=== PATIENT | male | born 1975 | race African-American/Black ===

== ENCOUNTER 2016-11-05 17:53 | Emergency (ER) | payer SELFPAY ==
[~2016-11-05] VITALS: Ht 190.5 cm; Wt 192.8 kg
[2016-11-05 18:28] VITALS: BP 185/93
[2016-11-05] MEDS ORDERED: Tetracaine 0.5% Opth Soln LEFT EYE ONE (18:45)
[2016-11-05] MEDS ORDERED: Fluorescein Strips LEFT EYE ONE (18:45)
[2016-11-05] MEDS ORDERED: OCUFLOX5 ML LEFT EYE (19:40)
[2016-11-05 19:55] VITALS: BP 175/88
--- NOTE | 2016-11-06 22:06 | Emergency Room Report ---
History of Present Illness General Chief Complaint: Headache Source: Patient Present Illness HPI 41-year-old M presents ED complaining of pain to the left eye. States symptoms started approximately 2 days ago. Patient notes a cloudiness over the left eye. States the cloudiness does blocks his vision at times but is otherwise clear. Patient denies any discharge from the eye. Pain is 8/10, throbbing, nonradiating. No other aggravating or relieving factors. Denies any other associated symptoms Allergies: Coded Allergies: No Known Allergies (Unverified , 11/05/16) Patient History Past Medical History: none Past Surgical History: none Pertinent Family History: none Social History: Denies: alcohol use, drug use, smoking Immunizations: UTD Reviewed Nursing Documentation: PMH: Agreed, PSxH: Agreed Review of Systems All Other Systems: negative except mentioned in HPI Physical Exam Vital Signs Date Time Temp Pulse Resp B/P Pulse Ox O2 Delivery O2 Flow Rate FiO2 11/05/16 18:06 98.2 85 16 209/133 96 Room Air Sp02 EP Interpretation: reviewed, normal General Appearance: no apparent distress, alert, GCS 15, non-toxic, obese Head: normocephalic, atraumatic Eyes: right eye other - cloudy deposit over L cornea. cone shaped cornea, left eye PERRL, left eye normal inspection ENT: hearing grossly normal, normal pharynx, no angioedema, normal voice, TMs + canals normal Neck: full range of motion, supple/symm/no masses Respiratory: chest non-tender, lungs clear, normal breath sounds, speaking full sentences Cardiovascular #1: regular rate, rhythm, no edema Cardiovascular #2: 2+ carotid (R), 2+ carotid (L), 2+ radial (R), 2+ radial (L) , 2+ dorsalis pedis (R), 2+ dorsalis pedis (L) Gastrointestinal: normal bowel sounds, non tender, soft, non-distended, no guarding, no rebound Rectal: deferred Genitourinary: normal inspection, no CVA tenderness Musculoskeletal: back normal, gait/station normal, normal range of motion, non- tender Neurologic: alert, oriented x3, responsive, motor strength/tone normal, sensory intact, speech normal Psychiatric: judgement/insight normal, memory normal, mood/affect normal, no suicidal/homicidal ideation Reflexes: 3+ bicep (R), 3+ bicep (L), 3+ tricep (R), 3+ tricep (L), 3+ knee (R) , 3+ knee (L) Skin: normal color, no rash, warm/dry, well hydrated Lymphatic: no adenopathy Medical Decision Making Diagnostic Impression: Primary Impression: Keratoconus Qualified Codes: H18.602 - Keratoconus, unspecified, left eye ER Course Hospital Course 41-year-old male presents to ED with left eye pain, cloudiness over L cornea Differential diagnoses include: conjunctivitis, traumatic iritis, foreign body, corneal abrasion Clinical course Patient placed on stretcher. After initial history, I applied tetracaine and Fluorescin to the affected eye. Using Wood's lamp I examined the eyes, no evidence of corneal abrasion. No Albert sign. From the lateral view the corneae is in a cone shape I discussed findings with plant technical specialist Dr. Paula. He believes that this is likely keratoconus. He did not believe that the symptoms started so abruptly. He recommends that patient needs to see an plant technical specialist who specializes in the cornea as outpatient. Patient expresses understanding of the plan Diagnosis - keratoconus Stable and discharged to home with prescription for Ocuflox. Followup with PMD/ Optho. Return to ED if symptoms recur or worsen Last Vital Signs Date Time Temp Pulse Resp B/P Pulse Ox O2 Delivery O2 Flow Rate FiO2 11/05/16 19:55 85 16 175/88 96 11/05/16 18:06 98.2 Room Air Status: improved Disposition: HOME, SELF-CARE Condition: Stable Scripts Ofloxacin (OCUFLOX) 5 Ml Drops 1 DROP LEFT EYE QID, #5 ML Prov: LILIANA BARRY M.D. 11/05/16 Patient Instructions: Diplopia Additional Instructions: followup with [facility] to get optho referral LILIANA BARRY M.D. Nov 06, 2016 22:06
== END 2016-11-05 19:55 | disposition home or self-care (01) ==
LOC: EMR 18:25
DX: H18.602 Keratoconus, unspecified, left eye (principal)
CPT/HCPCS: 93005; 99283